=== PATIENT | female | born 1940 | race Two or more races ===

== ENCOUNTER 2024-07-31 08:08 | Outpatient (CLI) | payer OTHER | END 2024-07-31 08:10 | disposition home or self-care (01) | LOC: SONOGRAMA 08:08 | PROVIDERS: ATTEND Pathology Anatomic Pathology & Clinical Pathology | DX: D44.0 Neoplasm of uncertain behavior of thyroid gland (principal); E04.8 Other specified nontoxic goiter ==

== ENCOUNTER → 2024-11-21 | Emergency (ER) | payer OTHER ==
[~2024-11-21] VITALS: Ht 157.5 cm; Wt 72.6 kg
[~2024-11-21] MED LIST: GLIPIZIDE XL5 MG; JARDIANCE10 MG; NORVASC5 MG; SYNTHROID88 MCG; TAGAMET HB200 MG; TOPROL XL25 M1
== END | disposition left against medical advice (07) ==
LOC: ER 17:36
DX: Z53.21 Procedure and treatment not carried out due to patient leaving prior to being seen by health care provider (principal)